=== PATIENT | female | born 1990 | race Hispanic/Latino ===

== ENCOUNTER 2020-10-16 10:37 | Emergency (ER) | payer OTHER ==
[~2020-10-16] VITALS: Ht 147.3 cm; Wt 62.6 kg
[2020-10-16] MEDS ORDERED: SODIUM CHLORIDE 0.9% 50ML 50 ML ONE (11:00)
[2020-10-16] MEDS ORDERED: IOPAMIDOL 370 MG/ML 200 ML INFUS..BTL INJ ONE (11:00)
[2020-10-16] MEDS ORDERED: ACETAMINOPHEN-1 EAC3 PO (12:12)
[2020-10-16] MEDS ORDERED: FLAGYL500 MG PO (12:12)
[2020-10-16] MEDS ORDERED: CIPRO500 MG PO (12:12)
[2020-10-16] MEDS ORDERED: ONDANSETRON ODT4 MG PO (12:12)
== END 2020-10-16 12:26 | disposition home or self-care (01) ==
LOC: FSED 10:40
DX: R10.11 Right upper quadrant pain (principal); K52.9 Noninfective gastroenteritis and colitis, unspecified
CPT/HCPCS: 74177; 80048; 80076; 81003; 81025; 85025; 99284; Q9967